=== PATIENT | female | born 1980 | race Two or more races ===

== ENCOUNTER 2019-07-09 13:45 | Emergency (ER) | payer MEDICAID ==
[~2019-07-09] VITALS: Ht 152.4 cm; Wt 72.6 kg
[2019-07-09 13:54] VITALS: BP 117/2
[2019-07-09] MEDS ORDERED: SILVER SULFADIAZINE 1 % TOPICAL CREAM 50GM TOP ONE (16:30)
[2019-07-09] MEDS ORDERED: ACETAMINOPHEN 325 MG TAB PO ONE (16:30)
== END 2019-07-09 16:52 | disposition home or self-care (01) ==
LOC: ER 13:45
DX: T20.16XA Burn of first degree of forehead and cheek, initial encounter (principal); S09.8XXA Other specified injuries of head, initial encounter; Z98.51 Tubal ligation status; X10.1XXA Contact with hot food, initial encounter; Y93.G3 Activity, cooking and baking; Y92.090 Kitchen in other non-institutional residence as the place of occurrence of the external cause; Y99.8 Other external cause status
CPT/HCPCS: 16000; 70450